=== PATIENT | male | born 1980 ===

== ENCOUNTER → 2025-05-12 08:00 | Outpatient (BNVA) | payer OTHER, SELFPAY | PROVIDERS: Visit Provider Dermatology | DX: L57.8 Other skin changes due to chronic exposure to nonionizing radiation (principal); L81.4 Other melanin hyperpigmentation; A63.0 Anogenital (venereal) warts | CPT/HCPCS: 17110; 99203 ==

== ENCOUNTER → 2025-06-09 09:07 | Outpatient (BNVA) | payer OTHER, SELFPAY | PROVIDERS: Visit Provider Dermatology | DX: A63.0 Anogenital (venereal) warts (principal); L57.8 Other skin changes due to chronic exposure to nonionizing radiation; L81.4 Other melanin hyperpigmentation | CPT/HCPCS: 99213 ==